=== PATIENT | female | born 1960 | race Caucasian/White ===

== ENCOUNTER 2016-06-08 09:37 | Day surgery (SDC) | payer BC ==
[~2016-06-08] VITALS: Ht 157.5 cm; Wt 128.0 kg
--- NOTE | 2016-06-26 12:20 | OR ---
ADMIT: 06/08/2016 RM/LOC: [facility] MR#: [id number] [address] [id number] MELLISA PERRY [address] [place] [address] Operative/Delivery Room Report SEX: F AGE: 55 : 1960 SURGERY DATE: 06/08/2016 SURGEON: Jesus Cifuentes MD PREOPERATIVE DIAGNOSIS: Screening colonoscopy. POSTOP DIAGNOSIS: Normal-appearing colonoscopy. PROCEDURE: Colonoscopy. ANESTHESIA: MAC anesthesia. ESTIMATED BLOOD LOSS: None. INDICATION FOR PROCEDURE: Please see H and P. PROCEDURE IN DETAIL: After the risks, benefits, possible complications, and the alternatives have been explained, and informed consent had been obtained, the patient was taken back to the procedure room, underwent sedation. The flexible colonoscope was introduced and slowly maneuvered all over to the cecum. Very good prep as you can see. The cecum appeared normal in picture 1, just above in picture 2 with the ileocecal valve and left lower corner of the picture there. The cecum, ascending, transverse, descending, sigmoid, and rectum all appeared normal. No polyps, masses, lesions, or significant mucosal changes were noted. Lower rectum and rectal exam revealed no mass or lesion. The scope was removed and the procedure terminated. Tolerated it well, was taken to recovery room in stable and satisfactory condition. Jesus Cifuentes MD/ gurdeep JOB #: [id number] CC: Jesus Cifuentes, Attending Physician Adam Thompson, Family Physician
== END 2016-06-08 14:50 | disposition home or self-care (01) ==
LOC: SSS 09:37
PROC: 0DJD8ZZ Inspection of Lower Intestinal Tract, Via Natural or Artificial Opening Endoscopic (ICD-10-PCS; principal; 2016-06-08)
DX: Z12.11 Encounter for screening for malignant neoplasm of colon (principal); J45.909 Unspecified asthma, uncomplicated; I10 Essential (primary) hypertension; K21.9 Gastro-esophageal reflux disease without esophagitis; E66.9 Obesity, unspecified; M19.90 Unspecified osteoarthritis, unspecified site; E11.9 Type 2 diabetes mellitus without complications; E03.9 Hypothyroidism, unspecified; G47.30 Sleep apnea, unspecified; Z88.6 Allergy status to analgesic agent; Z88.8 Allergy status to other drugs, medicaments and biological substances; Z79.899 Other long term (current) drug therapy

== ENCOUNTER → 2016-08-04 | Outpatient (CLI) | payer BC | END | disposition home or self-care (01) | LOC: RAD.S 08-02 12:58 | DX: M79.604 Pain in right leg (principal); M79.605 Pain in left leg; I70.201 Unspecified atherosclerosis of native arteries of extremities, right leg ==